=== PATIENT | female | born 1980 | race Caucasian/White ===

== ENCOUNTER 2016-06-27 14:25 | Inpatient (IN) | payer SELFPAY ==
[~2016-06-27] VITALS: Ht 167.6 cm; Wt 57.4 kg
[2016-06-27] MEDS ORDERED: ESCI10TA17 PO (14:36)
[2016-06-27] MEDS ORDERED: METH5TAB4 PO (14:36)
[2016-06-27 15:07] LABS: MEAN CELL VOLUME 90.1 fL (80-100); MEAN CORPUSCULAR HEMOGLOBIN 31.9 pg (25-34); MEAN CORPUSCULAR HGB CONC 35.4 g/dl (32-36); PLATELET COUNT 314 K/uL (130-400); RED BLOOD COUNT 4.55 M/uL (4.2-5.4)
[2016-06-27 15:24] LABS: BUN/CREATININE RATIO 14.2 (10-20); CALCIUM 8.7 mg/dl (8.5-10.1); CREATININE 0.84 mg/dl (0.60-1.20); POTASSIUM 3.5 mmol/L (3.5-5.1)
[2016-06-27 15:32] LABS: BENZODIAZEPINE, URINE NEG (NEG); COCAINE,URINE NEG (NEG); PHENCYCLIDINE, URINE NEG (NEG)
[2016-06-27 15:34] LABS: ACETAMINOPHEN < 2 ug/ml (10-30)
[2016-06-27 15:35] LABS: THYROID STIMULATING HORMONE 0.693 uIu/ml (0.300-4.500)
[2016-06-27] MEDS ORDERED: NICOTINE 14 MG/24 HR TDSY TD ONE (20:15)
[2016-06-27 21:00] VITALS: BP 128/85; PULSE 82; TEMP 36.6; BMI 20.4
[2016-06-27] MEDS ORDERED: NURSING VERBAL MED ORDER ONE ×2 (21:15→22:15)
[2016-06-27] MEDS ORDERED: hydrOXYzine HCL 25 MG TAB PO PRN (21:30)
[2016-06-27] MEDS ORDERED: ALUMINUM/MAGNESIUM SUSP 30 ML UDC PO PRN (21:30)
[2016-06-27] MEDS ORDERED: BISMUTH SUBSALICYLATE PER ML OMNICELL CHARGE PO PRN (21:30)
[2016-06-27] MEDS ORDERED: MAGNESIUM HYDROXIDE SUSP 30 ML UDC PO PRN (21:30)
[2016-06-27] MEDS ORDERED: SODIUM CHLORIDE 0.65% NA SOLN 45 ML (OCEAN) PRN (21:30)
[2016-06-27] MEDS ORDERED: ACETAMINOPHEN 325 MG TAB PO PRN (21:30)
[2016-06-27 21:32] VITALS: O2SAT 96
--- NOTE | 2016-06-27 21:59 | EMERGENCY ROOM VISIT NOTE ---
History Report prepared by Sarmad: Rj Maldonado Under the Supervision of: Dr. Steven Claros M.D. First contact with patient: 14:40 Chief Complaint: MENTAL HEALTH EVALUATION Stated Complaint: MR History of Present Illness The patient is a 35 year old female who presents to the Emergency Room by police for a mental health evaluation. There is a 302 petitioning statement against the patient. Per 302 petitioning statement, the patient has made several suicidal statements within the past few weeks, and has been "out of control". It states that the patient has said "I'll do it, that will show you", regarding harming herself. It also states that she has said "I just want to ". The statement also mentions that the patient's medications were full as of two weeks ago, but are now empty. The patient states that she has been having problems with depression for the past year. She denies any increased depression , or any suicidal thoughts. She denies making any suicidal statements. She states "I am not that selfish of a person", and would never harm herself because of her family. The patient is not completely sure why she was brought to the ED today. She believes that she was likely brought to the ED today because of her "crazy" roommate. She feels that her roommate has been acting "weird", and "hostile" and is a "stalker creeper". She states that her roommate has been sending her and her boyfriend "crazy" text messages recently as well, such as asking if she was having sex with her female friend. The patient sees a psychiatrist monthly, and is on Lexapro and Ritalin. She notes that she had a glass of wine today with lunch, and normally drinks about once a week. She denies any fevers, cold-symptoms, diarrhea, or urinary symptoms. She denies any chance of . Source of History: patient, other (302 petitioning statement) Onset: today Position: other (global) Quality: other (mental health evaluation) Timing: other (today) Associated Symptoms: No abdominal pain, No diarrhea, No fevers, No headache , No urinary symptoms, No vomiting Note: The patient denies any cold-symptoms. Review of Systems See HPI for pertinent positives & negatives. A total of 10 systems reviewed and were otherwise negative. Past Medical & Surgical Medical Problems: (1) Anxiety (2) Depression Family History No pertinent family history stated. Social History Smoking Status: Current Some Day Smoker Marital Status: in relationship Housing Status: lives with roommate Current/Historical Medications Scheduled Escitalopram (Lexapro), 10 MG PO QAM Methylphenidate (Ritalin), 5 MG PO QAM Allergies Coded Allergies: Penicillins (Unverified Allergy, Unknown, UNKNOWN, 06/27/16) Physical Exam Vital Signs Date Time Temp Pulse Resp B/P Pulse Ox O2 Delivery O2 Flow Rate FiO2 06/27/16 21:32 102 18 128/85 96 06/27/16 16:02 105 16 132/93 96 Room Air 06/27/16 14:30 36.6 105 16 136/87 100 Room Air Physical Exam Constitutional: Vital signs reviewed. Eyes: Pupils are equal round reactive to light. Conjunctiva are noninjected. ENT: Pharynx is clear without erythema or exudate. Mucous membranes are moist. Neck supple without meningeal signs. Respiratory: Clear to auscultation bilaterally. Breath sounds are equal bilaterally. Cardiovascular: Regular rate and rhythm. No rubs or gallops. GI: Soft, nondistended and nontender. Bowel sounds are present. Musculoskeletal: No peripheral edema. No lacerations to the wrist. Integumentary: No cyanosis. Neurological: The patient is awake and alert. No focal deficits. Psychiatric: Anxious. Medical Decision & Procedures Laboratory Results 06/27/16 14:55 06/27/16 14:55 Test 06/27/16 14:55 06/27/16 15:00 06/27/16 20:57 Red Blood Count 4.55 M/uL (4.2-5.4) Mean Corpuscular Volume 90.1 fL (80-100) Mean Corpuscular Hemoglobin 31.9 pg (25-34) Mean Corpuscular Hemoglobin Concent 35.4 g/dl (32-36) RDW Standard Deviation 39.6 fL (36.4-46.3) RDW Coefficient of Variation 12.2 % (11.5-14.5) Mean Platelet Volume 9.0 fL (7.4-10.4) Anion Gap 12.0 mmol/L (3-11) Est Creatinine Clear Calc Drug Dose 85.5 ml/min Estimated GFR () 105.1 Estimated GFR (Non- 90.7 BUN/Creatinine Ratio 14.2 (10-20) Calcium Level 8.7 mg/dl (8.5-10.1) Total Bilirubin 0.4 mg/dl (0.2-1) Direct Bilirubin 0.1 mg/dl (0-0.2) Aspartate Amino Transf (AST/SGOT) 16 U/L (15-37) Alanine Aminotransferase (ALT/SGPT) 21 U/L (12-78) Alkaline Phosphatase 77 U/L (45-117) Total Protein 7.8 gm/dl (6.4-8.2) Albumin 4.5 gm/dl (3.4-5.0) Thyroid Stimulating Hormone (TSH) 0.693 uIu/ml (0.300-4.500) Free Thyroxine 0.91 ng/dl (0.80-1.60) Salicylates Level 1.8 mg/dl (2.8-20) Acetaminophen Level < 2 ug/ml (10-30) Urine Test NEG (NEG) Urine Opiates Screen NEG (NEG) Urine Methadone, Qualitative NEG (NEG) Urine Barbiturates NEG (NEG) Urine Phencyclidine (PCP) Level NEG (NEG) Ur Amphetamine/Methamphetamine NEG (NEG) MDMA (Ecstasy) Screen NEG (NEG) Urine Benzodiazepines Screen NEG (NEG) Urine Cocaine Metabolite NEG (NEG) Urine Marijuana (THC) POS (NEG) Ethyl Alcohol mg/dL < 3.0 mg/dl (0-3) Laboratory results as reviewed by me. Medications Administered Medications (Trade) Dose Ordered Sig/Jolynn Route Start Time Stop Time Status Last Admin Dose Admin Nicotine (Nicoderm Cq 14MG Patch) 1 patch ONE ONCE TD 06/27/16 20:15 06/27/16 20:16 DC 06/27/16 20:16 1 PATCH ED Course 1442: The patient was evaluated in room A6. A complete history and physical exam was performed. 1550: I discussed the patient's case with the ed case manager. She spoke to the patient and plans to speak with the petitioner as well as the patient's boyfriend in order to get more information. The patient has denied everything on the petition thus far. 1808: I checked in on the patient. Her friend has arrived and says that the patient has been staying with him recently. He states that she has not made any suicidal statements to him. The patient gave consent for the ed case manager to speak with her boyfriend. 1832: I spoke with the ed case manager. She spoke with the patients boyfriend with her permission. The patients boyfriend states that the patient has been making suicidal statements. He states that the patient claimed that she would kill herself if she had a gun. 1899: The patient signed in to [address] [place] [id number] voluntarily. 2014: Ordered Nicoderm Cq 14 mg Patch. 2032: The patient is refusing treatment. Psychiatry requested that the 302 petitioning statement be signed. Medical Decision This is a 35-year-old female who presents for mental evaluation under 302 warrant. I did perform a limited focused review of portions of the patient's old chart on the electronic medical record. The patient has had no prior visits to this hospital. I did evaluate the patient as noted above. She is denying any suicidal ideation. She is stating that her roommate is lying. I did order and personally review the patient's urine tox screen a as described above. I did order and review the patient's blood work as noted in the electronic medical record. I did medically clear the patient. She was evaluated by the mental health cultural centre manager as well as the worker from [facility]. The patient continued to deny any suicidal ideation and stating that the roommate was lying. She would not, however, allow the cultural centre manager to call her boyfriend. I did have a discussion with her and explained to her that it was important that we speak to her boyfriend in order to further clarify the situation. She did finally give consent to the cultural centre manager to talk to the boyfriend. According to the cultural centre manager the boyfriend stated that the patient was an immediate danger to herself. He stated that the patient stated that she would shoot herself if she had a gun. Given the petitioner's statements regarding self-harm as well as the boyfriend's statements we did feel that the patient required inpatient psychiatric care in a safe environment to prevent self-harm. Initially the patient was willing to sign herself in voluntarily but stated that she would leave as soon as possible and not cooperate with therapy. The psychiatrist auto suspension and steering mechanic requested that the 302 petition be signed so that she could get the help she needs. I did sign the 302 petition. The patient was admitted to [facility]. Impression Primary Impression: Mood disorder Additional Impression: Suicidal ideation Scribe Attestation The scribe's documentation has been prepared under my direct and personally reviewed by me in its entirety. I confirm that the note above accurately reflects all work, treatment, procedures, and medical decision making performed by me. Departure Information Dispostion [facility] ) Referrals Nik Khan M.D. (PCP) Forms HOME CARE DOCUMENTATION FORM, IMPORTANT VISIT INFORMATION Patient Instructions My [facility] Problem Qualifiers
[2016-06-27] MEDS: ESCITALOPRAM OXALATE 10 MG TAB PO SCH (22:33)
[2016-06-27] MEDS: hydrOXYzine HCL 25 MG TAB PO PRN (22:41)
[2016-06-28 06:54] VITALS: BP_SYST 103; BP_SYST 130; BP_DIAS 69; BP_DIAS 91; PULSE 67; PULSE 98; TEMP 36.9
[2016-06-28 09:21] VITALS: BP 122/70; PULSE 52; TEMP 36.5
[2016-06-28] MEDS: ESCITALOPRAM OXALATE 20 MG TAB PO SCH (09:24)
[2016-06-28] MEDS ORDERED: AMPH1TAB58 PO (10:06)
[2016-06-28] MEDS ORDERED: BUSP5TAB59 PO (10:07)
[2016-06-28] MEDS ORDERED: CLON0.1T12 PO (10:09)
[2016-06-28] MEDS ORDERED: ESCI1TAB10 PO (10:09)
[2016-06-28] MEDS: NICOTINE 7 MG/24 HR TDSY TD SCH (11:42)
[2016-06-28 13:20] VITALS: BP 129/88; PULSE 64; TEMP 36.8
--- NOTE | 2016-06-28 13:44 | Psychiatric History & Physical ---
History Date of Service June 28, 2016. Identifying Data Daniela Hedrick is a 35-year-old female who currently lives in [place] with roommate. Daniela Hedrick was admitted on a 302 involuntary commitment. Patient is admitted from home. The patient was brought to the ED by the police. Information provided by the patient is considered to be unreliable as reports of suicidal thoughts inconsistent. Chief Complaint "Depressed". History of Present Illness Patient reports that she felt depressed for the past year but has struggled with depression off and on for several years. Mood has been aggravated by losing her job last. Patient has been having conflicts with her roommate and she moved out to live temporarily with another roommate. Patient had made suicidal statement over the past few weeks such as "I just want to " but in ED patient denied making suicidal statements. Patient agreed to allow case hardener in ED to contact boyfriend and he verified suicidal statements. Patient had initially agreed to hospitalization but then declined to participate in treatment and then refused treatment and planned to sign out as she did not want to participate in treatment. Chronic history of low self esteem since childhood. Decreased concentration. Decreased energy. Denies any history of manic episodes. Chronic history of anxiety since childhood. Self medicates anxiety with using marijuana 6 to 7 days per week. She has a longstanding history of using alcohol and had remained off alcohol from August 2015 until day of admission when she claims that she drank 1 glass of wine. She reports that she has been on a combination of Lexapro, Buspirone, Adderall and Clonidine through her PCP, Dr. Nik Strange. On Lexapro and Buspirone since January 2016 and reports that she started medications at the same time. She feels that Lexapro has helped her depression and anxiety and Buspirone has left her feeling nauseated and forgetful but upon further questioning it appears that patient takes Buspirone as needed when feeling more anxious and then discontinues it when anxiety levels improve. Past Psychiatric History Prior OP Treatment: psychiatrist (saw Dr. Peterson, psychiatrist now retired in [place] in 2012.) Access to a Gun: No Suicide Attempts: No Past Medical/Surgical History History of Concussion/Seizure: No Allergies Allergies: Coded Allergies: Penicillins (Unverified Allergy, Unknown, UNKNOWN, 06/27/16) Home Medications Scheduled Amphetamine-Dextroamphetamine 5MG (Adderall 5MG), 1 TAB PO DAILY Buspirone Hcl (Buspirone Hcl), 1 TAB PO TID Clonidine Hcl (Catapres), 1-2 TAB PO HS Escitalopram Oxalate (Lexapro), 20 MG PO DAILY Family History No family history of psychiatric problems. Paternal uncle - alcohol. Parents - alcohol. Great uncle - alcohol. Brother - stroke. Alcohol Use Alcohol Use In Past 12 Months: Yes (reported one drink of alcohol, BAL of .15 on admission) AUDIT Total Score: 12 Smoking Use Smoking Status: Current Some Day Smoker Substance History Patient reports a longstanding history of heavy alcohol use up until August 19 2015 then none up until drinking 1 glass of wine on day of discharge. Admits to using marijuana 6 to 7 days per week. She attends Alcoholics Anonymous 2 to 3 times per week. 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 Relationship History: other (boyfriend per patient but boyfriend reported to staff that they have broken up) Children: none Spiritual Affiliation: alcoholics anonymous per patient Legal History: none Additional Comments: Denies any past abuse. Review of Systems Constitutional: no symptoms reported Eyes: reports: no symptoms ENT: reports: no symptoms reported Cardiovascular: reports: no symptoms reported Respiratory: reports: no symptoms reported Gastrointestinal: no symptoms reported Genitourinary - Female: reports: no symptoms Musculoskeletal: no symptoms reported Integumentary: no symptoms reported Neurologic: reports: no symptoms Endocrine: no symptoms Hematologic / Lymphatic: no symptoms Examination Physical Examination A physical exam was performed in the ER by Dr. Steven Claros on 06/27/16 prior to admission to the unit. I accept that physical as correct/medical clearance for the inpatient physical exam. Vital Signs Vital Signs Past 12 Hours Date Time Temp Pulse Resp B/P Pulse Ox O2 Delivery O2 Flow Rate FiO2 06/28/16 09:21 36.5 52 18 122/70 06/28/16 06:54 36.9 67 18 103/69 98 130/91 Laboratory Results Last 24 Hours Test 06/27/16 14:55 06/27/16 15:00 06/27/16 20:57 White Blood Count 8.80 K/uL Red Blood Count 4.55 M/uL Hemoglobin 14.5 g/dL Hematocrit 41.0 % Mean Corpuscular Volume 90.1 fL Mean Corpuscular Hemoglobin 31.9 pg Mean Corpuscular Hemoglobin Concent 35.4 g/dl RDW Standard Deviation 39.6 fL RDW Coefficient of Variation 12.2 % Platelet Count 314 K/uL Mean Platelet Volume 9.0 fL Sodium Level 143 mmol/L Potassium Level 3.5 mmol/L Chloride Level 105 mmol/L Carbon Dioxide Level 26 mmol/L Anion Gap 12.0 mmol/L Blood Urea Nitrogen 12 mg/dl Creatinine 0.84 mg/dl Est Creatinine Clear Calc Drug Dose 85.5 ml/min Estimated GFR () 105.1 Estimated GFR (Non- 90.7 BUN/Creatinine Ratio 14.2 Random Glucose 112 mg/dl Calcium Level 8.7 mg/dl Total Bilirubin 0.4 mg/dl Direct Bilirubin 0.1 mg/dl Aspartate Amino Transf (AST/SGOT) 16 U/L Alanine Aminotransferase (ALT/SGPT) 21 U/L Alkaline Phosphatase 77 U/L Total Protein 7.8 gm/dl Albumin 4.5 gm/dl Thyroid Stimulating Hormone (TSH) 0.693 uIu/ml Free Thyroxine 0.91 ng/dl Salicylates Level 1.8 mg/dl Acetaminophen Level < 2 ug/ml Ethyl Alcohol mg/dL 15.0 mg/dl < 3.0 mg/dl Urine Test NEG Urine Opiates Screen NEG Urine Methadone, Qualitative NEG Urine Barbiturates NEG Urine Phencyclidine (PCP) Level NEG Ur Amphetamine/Methamphetamine NEG MDMA (Ecstasy) Screen NEG Urine Benzodiazepines Screen NEG Urine Cocaine Metabolite NEG Urine Marijuana (THC) POS Mental Examination During interview pt is: alert and oriented, guarded Appearance: appropriately dressed, appropriately groomed Eye contact is: good Motor behavior is: steady gait & station, no abnormal motor movements Speech: normal in rate, rhythm & volume Affect: depressed, anxious Mood is: depressed, anxious Thought process: goal directed, clear, coherent Thought content: reality based without delusions Suicidal thought are: present (patient admits that out of frustration she has made suicidal statements in past week but no intent to act) Homicidal thoughts are: denied Hallucinations: denies auditory, denies visual Cognition: memory grossly intact, attention grossly intact Intelligence estimated to be: consistent with level of education Insight: fair Judgement: fair Impression / Recommendations Impression 35 year old female presents with depression and anxiety following recently loss of job and relapse to drinking alcohol. Risk Factors Assessment : Yes /single/: Yes Access to guns: No Mental Health Diagnoses: Yes Substance use disorders: Yes Previous attempt: No Family history of suicide: No Previous psychiatric stay: No Smoker: Yes Protective Factors Assessment : No Responsible for young children: No Employed: No Stable relationships: No Recommendations (1) Depression, major, severe recurrence The patient is admitted to [facility] ([facility] mental [facility]) on q 15 min checks (behavioral with suicide precautions) for safety. The patient will participate in group, recreational and milieu therapies and will be offered additional individual and family sessions as clinically appropriate. Discussed FDA maximum approved dose of 20mg daily for Lexapro and patient accepts that there is limited controlled research above this dose and wishes to continue current dose as she feels that it has been helpful at 20mg in the morning and 10mg in the afternoon. (2) Generalized anxiety disorder Patient is agreeable to continuing Lexapro as she has found this helpful and will increase Buspirone to 10mg three times daily to further address anxiety. Will observe for increased nausea and forgetfulness which patient feels may be related to medication but unclear as to whether it is a side effect of restarting medication as she takes it intermittently when her anxiety level increases or if it is related to anxiety. Will continue Clonidine 0.2mg at bedtime which patient claims that she uses to decrease anxiety and help sleep at night as well as to control blood pressure. (3) Alcohol use disorder, mild, in controlled environment, abuse The patient's AUDIT score suggests problematic drinking (Zone III WHO). Brief intervention was offered and accepted Intervention (if performed) was greater than 5 min in length. Brief interventions include: 1. Assess Readiness to Quit, 2. Advise: Help Patient to Reduce or Abstain from Alcohol, 3. Agree: Set Specific, Feasible Goals, 4. Assist: Anticipate barriers, Problem-Solving Solutions. Social work to 5. Arrange: Referrals to appropriate treatment. Summary of intervention: The patient is in precontemplation stage with regards to transtheoretical model of change. The patient is advised to decrease alcohol consumption due to depressant effects and risk of interactions with prescription medications. The patient agreed to abstain from alcohol and continue with alcoholic anonymous and will be provided with recovery materials to continue to education self on how to cope with their condition without drinking. (4) Cannabis use disorder, mild, abuse Reviewed mood and cognitive altering effects of cannabis and patient minimizes usage and declines intervention and refuses to consider stopping. (5) Hypertension Continue Clonidine 0.2mg at bedtime as patient claims stable on this and will reassess blood pressure. CPT Code Initial Hospital Care: 67429 Problem Qualifiers (1) Hypertension: Hypertension type: essential hypertension Qualified Codes: I10 - Essential ( primary) hypertension
[2016-06-28 16:18] VITALS: BP 135/89; PULSE 65; TEMP 36.6
[2016-06-28 20:05] VITALS: BP 138/93; PULSE 84; TEMP 36.8
[2016-06-28] MEDS: ESCITALOPRAM OXALATE 10 MG TAB PO SCH (21:32)
[2016-06-28] MEDS: CLONIDINE HCL 0.1 MG TAB PO SCH (21:32)
[2016-06-29] MEDS: hydrOXYzine HCL 25 MG TAB PO PRN ×3 (00:04→21:05)
[2016-06-29 06:53] VITALS: BP_SYST 96; BP_SYST 98; BP_DIAS 64; BP_DIAS 70; PULSE 72; PULSE 83; TEMP 36.8
[2016-06-29 08:17] VITALS: BP 107/81; PULSE 83; PULSE 84; TEMP 36.8
[2016-06-29] MEDS ORDERED: ESCI10TA17 PO (09:14)
[2016-06-29] MEDS: NICOTINE 7 MG/24 HR TDSY TD SCH (09:20)
[2016-06-29] MEDS: ESCITALOPRAM OXALATE 20 MG TAB PO SCH (09:20)
[2016-06-29 13:02] VITALS: BP 122/82; PULSE 59; TEMP 36.7
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
[2016-06-29 16:02] VITALS: BP 129/93; PULSE 66; TEMP 36.4
[2016-06-29 20:59] VITALS: BP 121/90; PULSE 66; TEMP 36.7
[2016-06-29] MEDS: ESCITALOPRAM OXALATE 10 MG TAB PO SCH (21:01)
[2016-06-29] MEDS: CLONIDINE HCL 0.1 MG TAB PO SCH (21:02)
[2016-06-30 06:52] VITALS: BP_SYST 93; BP_SYST 94; BP_DIAS 60; PULSE 55; PULSE 69; TEMP 36.8
[2016-06-30 06:54] VITALS: Ht 167.6 cm; Wt 57.4 kg
[2016-06-30] MEDS: ESCITALOPRAM OXALATE 20 MG TAB PO SCH (09:00)
[2016-06-30] MEDS: NICOTINE 7 MG/24 HR TDSY TD SCH (09:25)
[2016-06-30] MEDS ORDERED: BUSP-8 PO (13:06)
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
[2016-06-30] MEDS ORDERED: DESTROY THIS MEDICATION ONE (13:45)
== END 2016-06-30 14:52 | disposition home or self-care (01) | DRG 881 ==
LOC: C.EDB 14:27 → C.MHU 21:35
PROVIDERS: ADMIT Psychiatry & Neurology Psychiatry; ATTEND Psychiatry & Neurology Psychiatry
DX: F32.9 Major depressive disorder, single episode, unspecified (principal); F41.1 Generalized anxiety disorder; I10 Essential (primary) hypertension; F10.10 Alcohol abuse, uncomplicated; Z79.899 Other long term (current) drug therapy; F17.200 Nicotine dependence, unspecified, uncomplicated; F12.10 Cannabis abuse, uncomplicated